=== PATIENT | female | born 1990 | race Two or more races ===

== ENCOUNTER 2018-03-14 15:55 | Emergency (ER) | payer MEDICAID ==
[~2018-03-14] VITALS: Ht 172.7 cm; Wt 62.0 kg
[2018-03-14 16:54] VITALS: BP 112/70
[2018-03-14 18:31] LABS: BASOPHILS % 0.5 % (0.0-2.0); EOSINOPHILS % 0.4 % (0.0-5.0); HEMATOCRIT. 33.3 % (36.0-48.0); HEMOGLOBIN. 10.6 g/dL (12.0-16.0); LYMPHOCYTES % 9.3 % (20.0-50.0); MEAN CORPUSCULAR HEMOGLOBIN 24.9 pg (28.0-32.0); MEAN CORPUSCULAR VOLUME 78.2 fL (81.0-99.0); MEAN PLATELET VOLUME 8.5 fl (7.4-10.4); MONOCYTES % 3.8 % (2.0-8.0); PLATELET 410 x1000/uL (130-400); RED BLOOD CELL COUNT 4.25 mill/uL (4.2-5.4); RED CELL DISTRIBUTION WIDTH 16.3 % (11.6-14.6)
[2018-03-14 18:36] LABS: CHLORIDE 108 mEq/L (98-107)
[2018-03-14 18:37] LABS: INR 1.1; PROTHROMBIN TIME 10.9 sec (9.4-11.6)
== END 2018-03-15 06:21 | disposition left against medical advice (07) ==
LOC: ER 15:55
DX: R10.9 Unspecified abdominal pain (principal); R30.0 Dysuria
CPT/HCPCS: 36415; 80053; 83690; 85025; 85610; 99284